=== PATIENT | male | born 2000 | race Two or more races ===

== ENCOUNTER 2020-01-31 04:25 | Emergency (ER) | payer SELFPAY ==
[~2020-01-31] VITALS: Ht 170.2 cm; Wt 53.5 kg
[2020-01-31 04:34] VITALS: BP 126/78
--- NOTE | 2020-01-31 04:34 | NUR ---
ED Nurse Note: Patient presents with complaints of intermittent nosebleed after helping a friend move and being exposed to fiberglass. patient reports nose bleeding after blowing. patient reports no pain
[2020-01-31] MEDS ORDERED: Silver Nitrate Stick TOPIC ONE ×2 (04:49→05:00)
--- NOTE | 2020-01-31 04:50 | NUR ---
ED Nurse Note: ERMD at bedside performing clotting procedure.
--- NOTE | 2020-01-31 05:01 | Emergency Room Report ---
History of Present Illness General Chief Complaint: Nosebleed Source: Patient Present Illness HPI This is a 19-year-old male with no past pro history. He presents with chief plaint of nosebleed. Is been on and off for the last 3 days. Mostly on the left side. Worse when he sneezes or pick at it. 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 He thinks is from that. No nausea no vomiting. No fever chills but no cough or congestion. No runny nose. Allergies: Coded Allergies: SHELLFISH DERIVED (Verified Allergy, Unknown, 01/31/20) COVID-19 Screening Contact w/high risk pt: No Recent Travel to affected area: No Experienced COVID-19 symptoms?: No COVID-19 Testing performed BREAKFAST HOST: No Patient History Past Medical History: see triage record, old chart reviewed Past Surgical History: none Pertinent Family History: none Social History: Denies: smoking Immunizations: other Reviewed Nursing Documentation: PMH: Agreed; PSxH: Agreed Nursing Documentation-PMH Past Medical History: No History, Except For Hx Asthma: Yes Review of Systems Eye: Denies: eye pain, blurred vision ENT: Denies: ear pain, nose congestion, throat swelling Respiratory: Denies: cough, shortness of breath Cardiovascular: Denies: chest pain, palpitations Gastrointestinal: Denies: abdominal pain, diarrhea, nausea, vomiting Musculoskeletal: Denies: back pain, joint pain Skin: Denies: rash Neurological: Denies: headache, numbness Endocrine: Denies: increased thirst, increased urine Hematologic/Lymphatic: Denies: easy bruising All Other Systems: negative except mentioned in HPI Physical Exam Vital Signs Date Time Temp Pulse Resp B/P (MAP) Pulse Ox O2 Delivery O2 Flow Rate FiO2 01/31/20 04:34 98.1 67 18 126/78 (94) 99 Room Air Nose normal Sp02 EP Interpretation: reviewed, normal General Appearance: well appearing, no apparent distress, alert Head: normocephalic, atraumatic Eyes: bilateral eye PERRL, bilateral eye EOMI ENT: hearing grossly normal, normal pharynx, other - Nose: There is dried blood on the septum on the left side. There is dried blood on the turbinate on the right. No active bleeding. No posterior bleeding. Neck: full range of motion, supple, no meningismus Respiratory: chest non-tender, lungs clear, normal breath sounds Cardiovascular #1: regular rate, rhythm, no murmur Gastrointestinal: normal bowel sounds, non tender, no mass, no organomegaly, no bruit, non-distended Musculoskeletal: back normal, normal range of motion, gait/station normal Psychiatric: mood/affect normal Procedures Additional Procedure Procedure Narrative Procedure: Epistaxis control Patient: Epistaxis Description: Using a silver nitrate sticks, I cauterized the area of bleeding. Patient tolerated procedure without any problem. No complication. Bleeding stopped. Medical Decision Making Diagnostic Impression: Primary Impression: Epistaxis ER Course Patient with anterior epistaxis. Bleeding controlled. Will discharge home. Last Vital Signs Date Time Temp Pulse Resp B/P (MAP) Pulse Ox O2 Delivery O2 Flow Rate FiO2 01/31/20 04:34 98.1 67 18 126/78 (94) 99 Room Air Status: improved Disposition: HOME, SELF-CARE Condition: Stable Referrals: NOT CHOSEN IPA/,REFERRING (PCP) Patient Instructions: Nosebleed, [id number] Additional Instructions: Follow-up with your doctor in 7 days as needed. Do not pick your nose. Apply a dab of antibiotic ointment or Vaseline twice a day. Return if symptoms worsen. Hussein Armando MD Jan 31, 2020 05:01
[2020-01-31 05:05] VITALS: BP 126/78
--- NOTE | 2020-01-31 05:05 | NUR ---
ED Nurse Note: Patient cleared for discharge by VANESSA. Patient is a&ox4, ambulatory with steady gait. Patient departed with all belongings.
== END 2020-01-31 05:00 | disposition home or self-care (01) ==
LOC: EMR 04:54
DX: R04.0 Epistaxis (principal); Z91.013 Allergy to seafood
CPT/HCPCS: 99283